=== PATIENT | female | born 1975 | race African-American/Black ===

== ENCOUNTER 2017-01-05 09:04 | Emergency (ER) | payer MEDICAID ==
[~2017-01-05] VITALS: Ht 165.1 cm; Wt 97.0 kg
[~2017-01-05 09:04] MED LIST: LISINOPRIL
[2017-01-05] MEDS ORDERED: SODIUM CHLORIDE 0.9% 1,000 ML IV ONE (10:35)
[2017-01-05] MEDS ORDERED: ONDANSETRON HCL 4MG/2ML VIAL IV STA (10:35)
[2017-01-05 10:57] LABS: BASOPHILS % 0.2 % (0.0-2.0); EOSINOPHILS % 0.3 % (0.0-5.0); HEMATOCRIT. 36.6 % (36.0-48.0); HEMOGLOBIN. 11.9 g/dL (12.0-16.0); LYMPHOCYTES % 12.8 % (20.0-50.0); MEAN CORPUSCULAR HEMOGLOBIN 27.7 pg (28.0-32.0); MEAN CORPUSCULAR VOLUME 85.4 fL (81.0-99.0); MEAN PLATELET VOLUME 8.5 fl (7.4-10.4); MONOCYTES % 11.5 % (2.0-8.0); NEUTROPHILS % 75.2 % (40.0-76.0); PLATELET 207 x1000/uL (130-400); RED BLOOD CELL COUNT 4.28 mill/uL (4.2-5.4); RED CELL DISTRIBUTION WIDTH 15.6 % (11.6-14.6)
[2017-01-05 11:03] LABS: CHLORIDE 105 mEq/L (98-107)
[2017-01-05 11:04] LABS: CLARITY URINE CLOUDY (CLEAR); COLOR URINE YELLOW (YELLOW); GLUCOSE URINE NEGATIVE (NEGATIVE); KETONES URINE NEGATIVE (NEGATIVE); LEUKOCYTE ESTERASE URINE 2+ (NEGATIVE); NITRITE URINE POSITIVE (NEGATIVE); OCCULT BLOOD URINE NEGATIVE (NEGATIVE); PH URINE 5.5 (4.5-8.0); PROTEIN URINE TRACE (NEGATIVE); SPECIFIC GRAVITY URINE 1.015 (1.005-1.030); UROBILINOGEN URINE 0.2 E.U./dL (0.2-1.0)
[2017-01-05 11:12] LABS: CARBON DIOXIDE 27 mEq/L (21-32)
[2017-01-05 11:21] LABS: HCG SCREEN NEGATIVE
[2017-01-05 11:30] LABS: *AMPHETAMINES SCREEN URINE NEGATIVE (NEGATIVE); *BARBITURATES SCREEN URINE NEGATIVE (NEGATIVE); *BENZODIAZEPINES SCREEN URINE NEGATIVE (NEGATIVE); *COCAINE SCREEN URINE NEGATIVE (NEGATIVE); CANNABINOID URINE SCREEN NEGATIVE (NEGATIVE); METHADONE URINE SCREEN NEGATIVE (NEGATIVE); OPIATES URINE SCREEN NEGATIVE (NEGATIVE); PHENCYCLIDINE URINE SCREEN NEGATIVE (NEGATIVE)
[2017-01-05] MEDS ORDERED: KETOROLAC 30MG/ML VIAL IV ONE (13:00)
[2017-01-05] MEDS ORDERED: LEVOFLOXACIN 750MG PREMIX 150 ML IV ONE (13:00)
[2017-01-05 13:34] VITALS: BP 141/86
== END 2017-01-05 14:47 | disposition home or self-care (01) ==
LOC: ER 10:00
DX: N12 Tubulo-interstitial nephritis, not specified as acute or chronic (principal); F17.200 Nicotine dependence, unspecified, uncomplicated; I10 Essential (primary) hypertension; Z88.0 Allergy status to penicillin
CPT/HCPCS: 36415; 71010; 76770; 80053; 80305; 81001; 83690; 84703; 85025; 87077; 87086; 87186; 96361; 96365; 96375; 99285; J1885; J1956; J2405; J7030; Z7610

== ENCOUNTER 2020-11-12 03:56 | Emergency (ER) | payer MEDICARE, OTHER ==
[~2020-11-12] VITALS: Ht 165.1 cm; Wt 98.0 kg
[2020-11-12 05:05] LABS: BASOPHILS % 0.4 % (0.0-2.0); EOSINOPHILS % 1.8 % (0.0-5.0); HEMATOCRIT. 36.3 % (36.0-48.0); HEMOGLOBIN. 11.7 g/dL (12.0-16.0); LYMPHOCYTES % 43.4 % (20.0-50.0); MEAN CORPUSCULAR HEMOGLOBIN 27.1 pg (28.0-32.0); MEAN CORPUSCULAR VOLUME 83.9 fL (81.0-99.0); MEAN PLATELET VOLUME 8.5 fl (7.4-10.4); MONOCYTES % 9.8 % (2.0-8.0); NEUTROPHILS % 44.6 % (40.0-76.0); PLATELET 199 x1000/uL (130-400); RED BLOOD CELL COUNT 4.33 mill/uL (4.2-5.4); RED CELL DISTRIBUTION WIDTH 16.1 % (11.6-14.6)
[2020-11-12 05:10] LABS: CHLORIDE 111 mEq/L (98-107)
[2020-11-12] MEDS ORDERED: IBUP-2029 MT (05:47)
[2020-11-12 06:14] VITALS: BP 150/90
== END 2020-11-12 06:14 | disposition home or self-care (01) ==
LOC: ER 03:56
DX: R09.1 Pleurisy (principal); I10 Essential (primary) hypertension; M06.9 Rheumatoid arthritis, unspecified; Z98.890 Other specified postprocedural states; Z88.0 Allergy status to penicillin
CPT/HCPCS: 36415; 71045; 80053; 84484; 85025; 85379; 99284

== ENCOUNTER 2022-03-12 06:30 | Emergency (ER) | payer MEDICARE, MEDICAID ==
[~2022-03-12] VITALS: Ht 165.1 cm; Wt 102.0 kg
[~2022-03-12 06:30] MED LIST changes: +IBUP-2029 MT
[2022-03-12 06:38] VITALS: BP_DIAS 98
[2022-03-12 08:40] VITALS: BP_SYST 146
[2022-03-12] MEDS ORDERED: IBUP-2030 MT (08:50)
[2022-03-12] MEDS ORDERED: IBUPROFEN 800MG TABLET PO ONE (09:00)
== END 2022-03-12 09:10 | disposition home or self-care (01) ==
LOC: ER 07:02
DX: M25.561 Pain in right knee (principal); I10 Essential (primary) hypertension; Z98.890 Other specified postprocedural states; Z88.0 Allergy status to penicillin
CPT/HCPCS: 73562; 73590; 93971; 99284

== ENCOUNTER 2022-08-26 10:16 | Emergency (ER) | payer MEDICARE, MEDICAID ==
[~2022-08-26] VITALS: Ht 167.6 cm; Wt 106.0 kg
[~2022-08-26 10:16] MED LIST changes: +IBUP-2030 MT
[2022-08-26 10:24] VITALS: BP 131/74; PULSE 115; RESP 20; TEMP 98.3; O2SAT 97
[2022-08-26] MEDS ORDERED: AZIT250T12 MT (12:02)
== END 2022-08-26 12:19 | disposition home or self-care (01) ==
LOC: ER 10:16
DX: I88.9 Nonspecific lymphadenitis, unspecified (principal); I10 Essential (primary) hypertension; Z88.0 Allergy status to penicillin; Z98.890 Other specified postprocedural states
CPT/HCPCS: 99281; 99283

== ENCOUNTER 2024-08-28 03:47 | Emergency (ER) | payer MEDICARE, MEDICAID ==
[~2024-08-28] VITALS: Ht 167.6 cm; Wt 105.0 kg
[~2024-08-28 03:47] MED LIST changes: +AZIT250T12 MT
[2024-08-28 03:54] VITALS: O2SAT 100
[2024-08-28 04:13] VITALS: BP 159/107; PULSE 89; RESP 19; TEMP 36.9; O2SAT 99
[2024-08-28] MEDS: ACETAMINOPHEN 325MG TABLET PO ONE (06:52)
== END 2024-08-28 09:35 | disposition home or self-care (01) ==
LOC: ER 03:47
DX: S09.90XA Unspecified injury of head, initial encounter (principal); I10 Essential (primary) hypertension; M25.512 Pain in left shoulder; M25.562 Pain in left knee; M54.9 Dorsalgia, unspecified; Z90.710 Acquired absence of both cervix and uterus; Z88.0 Allergy status to penicillin; Z98.890 Other specified postprocedural states; Z79.899 Other long term (current) drug therapy; V43.52XA Car driver injured in collision with other type car in traffic accident, initial encounter; Y93.89 Activity, other specified; Y92.89 Other specified places as the place of occurrence of the external cause; Y99.8 Other external cause status
CPT/HCPCS: 70486; 73030; 73090; 73562; 99284

== ENCOUNTER 2025-01-29 21:06 | Emergency (ER) | payer MEDICARE, MEDICAID ==
[~2025-01-29] VITALS: Ht 165.1 cm; Wt 105.0 kg
[~2025-01-29 21:06] MED LIST changes: +IBUP-1455 MT; -IBUP-2029 MT
[2025-01-29 22:06] VITALS: O2SAT 99
[2025-01-29] MEDS ORDERED: CYCL10TA21 MT (22:25)
[2025-01-29] MEDS ORDERED: NAPR-1176 MT (22:25)
[2025-01-29] MEDS: KETOROLAC 30MG/ML VIAL IM ONE (22:31)
[2025-01-29] MEDS: HYDROCHLOROTHIAZIDE 25MG TABLET PO ONE (22:32)
[2025-01-29] MEDS: CYCLOBENZAPRINE 10MG TABLET PO ONE (22:32)
[2025-01-29 22:40] VITALS: BP 173/105; PULSE 79; RESP 18; TEMP 36.6; O2SAT 98
== END 2025-01-29 22:40 | disposition home or self-care (01) ==
LOC: ER 21:06
DX: S39.012A Strain of muscle, fascia and tendon of lower back, initial encounter (principal); S16.1XXA Strain of muscle, fascia and tendon at neck level, initial encounter; M25.512 Pain in left shoulder; I10 Essential (primary) hypertension; Z88.0 Allergy status to penicillin; X58.XXXA Exposure to other specified factors, initial encounter; Y93.89 Activity, other specified; Y92.89 Other specified places as the place of occurrence of the external cause; Y99.8 Other external cause status
CPT/HCPCS: 99283; 96372; J1885